=== PATIENT | male | born 1995 | race Hispanic/Latino ===

== ENCOUNTER 2022-11-25 01:06 | Emergency (ER) | payer OTHER | END 2022-11-25 05:00 | LOC: ERS 01:06 | DX: Z02.89 Encounter for other administrative examinations (principal) | CPT/HCPCS: 93005 ==

== ENCOUNTER 2023-10-26 18:31 | Emergency (ER) | payer BC, SELFPAY ==
[2023-10-26] MEDS ORDERED: Ondansetron ODT 4 MG TAB ONE (19:36)
[2023-10-26] MEDS ORDERED: Pantoprazole DR 40 MG TAB ONE (19:36)
[2023-10-26] MEDS ORDERED: Lidocaine 2% Viscous 10 mL, Alum & Magn 30 mL SSW SCH (19:45)
== END 2023-10-26 21:09 | disposition home or self-care (01) ==
LOC: ERS 18:31
DX: K21.9 Gastro-esophageal reflux disease without esophagitis (principal); R11.0 Nausea
CPT/HCPCS: 99283; Q0162